=== PATIENT | female | born 1970 | race Caucasian/White ===

== ENCOUNTER 2016-12-05 05:52 | Inpatient (IN) ==
[2016-12-05] MEDS ORDERED: CeFAZolin Pre 2,000 MG/100 ML 2,000 MG/100 ML BAG IVPB ONE (06:18)
[2016-12-05] MEDS ORDERED: Lidocaine -MPF 4% 5 ML AMPUL ONE (06:51)
[2016-12-05] MEDS ORDERED: *HR* Midazolam HCl 2 MG/2 ML VIAL ONE (06:56)
[2016-12-05] MEDS ORDERED: Lidocaine -MPF 2% 2 ML VIAL ONE (06:57)
[2016-12-05] MEDS ORDERED: Ondansetron 4 MG/2 ML VIAL ONE (06:57)
[2016-12-05] MEDS ORDERED: Neostigmine Methylsulfate 3 MG/3 ML SYRINGE ONE (06:57)
[2016-12-05] MEDS ORDERED: Dexamethasone 4 MG/ML VIAL ONE (06:57)
[2016-12-05] MEDS ORDERED: *HR* Propofol 200 MG/20 ML VIAL IVP ONE (06:57)
[2016-12-05] MEDS ORDERED: *HR* FentaNYL (PF) 100 MCG/2 ML VIAL ONE ×3 (06:57→09:14)
[2016-12-05] MEDS ORDERED: *HR* Rocuronium Bromide 50 MG/5 ML VIAL ONE (06:57)
[2016-12-05] MEDS: Ringers Solution, Lactated 1,000 ML IVC SCH ×2 (07:04→09:32)
[2016-12-05] MEDS ORDERED: *HR* Belladonna Alkaloids/Opium 30 MG RECTAL SUPPOSITORY RC ONE (08:00)
--- NOTE | 2016-12-05 08:00 | Anesthesia Evaluation PreOp ---
Date of Encounter: 12/05/16 Time of Encounter: 07:58 - Past History Planned Operation: TAHBSO Cardiac History: Denies any Significant Hx Pulmonary History: Denies Any Significant HX FLIGHT ENGINEER History: Denies Any Significant HX Other Medical History: Denies Any Significant HX Anesthesia History: No Prior Anesthetic Complications, Past Anesthesia (c/s, l knee x 3, d&c) Alcohol Use: none Drug use: none Medications and Allergies No Known Home Drugs 12/05/16 [History] Allergies morphine Adverse Reaction (Verified 12/05/16 07:28) Hives - Meds/Allergy Pre-op Review Medications Reviewed: Yes Allergies Reviewed: Yes Beta Blockers on Current Med List: No Anesthesia Results - Labs Laboratory Tests 11/28/16 11/28/16 10:26 10:26 Hgb 15.6 H Hct 45.1 H Plt Count 285 Sodium 137 Potassium 4.2 Creatinine 0.74 Anesthesia Exam O2 Sat Height 1.52 m Height 1.52 m Height 1.52 m Weight 87.543 kg Weight 87.543 kg Weight 87.543 kg O2 Sat by Pulse Oximetry 97 O2 Sat by Pulse Oximetry 97 Vital Signs Temp Pulse Resp BP Pulse Ox 98.2 F 96 18 112/72 97 12/05/16 06:17 12/05/16 06:17 12/05/16 06:17 12/05/16 06:17 12/05/16 06:17 Height: 1.52 Weight: 87 NPO (# of Hours): >8 - HEENT Pupil (Motor): Pupils equal, EOMI Mallampati: II Teeth: Normal Oral Opening: Greater than 3 (good underbite) - FLIGHT ENGINEER LOC: Oriented FLIGHT ENGINEER Motor: Normal RUE, Normal LUE, Normal RLE, Normal LLE, Normal Face FLIGHT ENGINEER Sensory: Normal: RUE, LUE, RLE, LLE, Face - Cardiac Rhythm: Regular Murmur: None - Pulmonary Breath Sounds: bilateral Clear Respiratory Effort: Symmetrical Anesthesia Assess/Plan ASA Score: 1 Modified Mae Scale for Level of Consciousness: Cooperative, oriented, and tranquil Anesthetic Plan: General, Regional Monitoring Plan: Standard Monitors Recovery Plan: PACU
[2016-12-05] MEDS ORDERED: Bupivacaine/EPI 1:200k 0.25%PF 10 ML VIAL INFILT ONE (08:01)
--- NOTE | 2016-12-05 08:04 | History & Physical Report ---
Date of Encounter: 12/05/16 Time of Encounter: 08:04 24 Hour HP Update - Instructions Instructions: If the History and Physical is less than 30 days old and was completed prior to A.M. admission and or procedure and has NOT been updated on calendar day of procedure please complete this update prior to performing procedure. - Update Patient reports changes in Medical Condition: No Changes in assessment/condition: No Changes in Medication: No Preop tests/diagnostics Reviewed: Yes Surgery Remains Indicated: Yes Consent for Planned Operative Procedure(s) Verified: Yes - Pre-Operative Checklist Preoperative Checklist Indicated: Yes Prophylactic Antibiotic Ordered: Yes Home Medications Include Beta Savannah: No Beta Savannah Taken Today (Day of Surgery): No Beta [place] Taken Yesterday (Day Prior to Surgery): No Is VTE Prophylaxis Indicated?: Yes - Attending Attestation meryl tam md facog
[2016-12-05] MEDS ORDERED: Bupivacaine/Clonidine Syringe 1 EACH SYRINGE ONE (08:08)
--- NOTE | 2016-12-05 08:59 | Anesthesia Procedures ---
Date of Encounter: 12/05/16 Time of Encounter: 08:57 Procedures: Anesthesia - Nerve Block Procedure Date: 12/05/16 Time: 08:58 Allergies/Adv Reactions: morphine Pre-op Diagnosis: menorrhagia Surgical Procedure: TAHBSO Checklist: Correct Patient Identifier, Correct procedure, History checked Blood Thinner: No Monitor Applied: EKG, BP, Pulse Oximetry Supplemental Oxygen via Nasal Cannula (L/min): 2 Indication: Post Op Analgesia (request per dr harden) Pre-op Neuro Deficits: No Block Type: Other (bilat QL1 ) Catheter placed: No Sterile Technique: Yes Ultrasound used: Yes Anatomy identified: Yes Visual spread of Local: Yes Neuro Stimulation: No Blood on Needle Aspiration: No Smooth Injection of Local: Yes Pain with Injection of Local: No Prep: Chlorhexadine Needle: 21 x 100 mm Stimuplex Local: 0.25% Bupivicaine w/Clonidine 20 mcg/cc Volume (cc): 40 Number of Attempts: 1 Complications: None/effective block (block performed post indn) Vitals: see or note
[2016-12-05] MEDS ORDERED: Lacri-Lube 3.5 GM TUBE ONE (09:10)
[2016-12-05] MEDS ORDERED: *HR* HYDROmorphone (PF) 1 MG/ML SYRINGE IVP PRN (09:13)
[2016-12-05] MEDS ORDERED: Ketorolac 30 MG/ML VIAL ONE (10:44)
--- NOTE | 2016-12-05 11:24 | OB/GYN Procedure Note ---
Hysterectomy - Diagnosis Date of procedure: 12/05/16 Hysterectomy pre-op: abnormal uterine bleeding, symptomatic leiomyomata Post-op diagnosis: same - Procedure Hysterectomy procedure: total abdominal hysterectomy, bilateral salpingectomy Surgeon: Rodolfo Neves Ski Lift Attendant: Laura Mosqueda Anesthesia provider: Krystian Ramos Anesthesia Type: General Estimated blood loss (cc): 200 Complications: none Fluids: crystalloid Urine output (cc): 100 Specimens: uterus, cervix, right fallopian tube, left fallopian tube Findings: The fallopian tubes and ovaries appeared to be normal bilaterally. Uterus was enlarged to 12 weeks' size with multiple serosal and intramural leiomyomata. The bladder was pulled up skilled nursing to the anterior uterine surface. Disposition: PACU Narrative: Patient was taken to the operating room. After satisfactory anesthesia was achieved, patient placed in supine position, Howell catheter inserted, and prepped and draped in usual manner. After appropriate timeout, the abdomen was entered through standard Maylard incision. The Jarrell retractor was placed. The bowel was packed superiorly with an operative field. Uterus grasped on either side with Nancy clamps . The fallopian tubes were coagulated and cut on both sides. The round ligaments were coagulated on both sides and cut. Meso- ovarian ligaments were was coagulated and cut. The bladder that was stuck to the anterior surface of the uterus was dissected with sharp and blunt dissection. Uterine arteries were coagulated and both sides and cut. Once the bladder was free and dissected from the lower uterine segment, the cardinal ligament pedicles were coagulated on both sides and cut. Uterosacral ligaments were clamped, cut , and suture ligated with 0 Monocryl. The vagina was entered posteriorly. Cervix uterus , and attached adnexa were resected and sent to pathology for analysis. The vaginal cuff was closed with 0 Monocryl incorporating the uterosacral ligament pedicles. After assurance of hemostasis , the peritoneum was reapproximated over the vaginal cuff. FloSeal was placed on the overall bladder dissected area. After assurance of hemostasis , the retractor and packs were removed. The abdomen was closed in standard fashion using 0 Vicryl on the fascia and 3-0 Monocryl on the skin. Sterile dressing was applied. Patient did well and was taken to recovery room in satisfactory condition. Counts were correct.
[2016-12-05] MEDS ORDERED: Acetaminophen IV 1,000 MG/100 ML INFUS..BTL ONE (11:34)
--- NOTE | 2016-12-05 11:55 | Anesthesia Evaluation Post Op ---
Date of Encounter: 12/05/16 Time of Encounter: 11:55 - Lungs Lungs: Clear Ascult./Percussion - Airway Airway: Non-obstructed - Cardiovascular Regular Rate - Mental Status Mental Status: Alert & Oriented, Answers Appropriately - Pain Pain Scale: 4 - Nausea Vomiting Nausea Vomiting: Not Present - Hydration Hydration: Tolerates oral liquids - Discharge PostOp Status: Discharge Patient to home
[2016-12-05] MEDS ORDERED: Naloxone 0.4 MG/ML INJ IVP PRN (12:31)
[2016-12-05] MEDS ORDERED: *HR* HYDROcodone/Acet 5/325 mg TABLET PO PRN (12:31)
[2016-12-05] MEDS ORDERED: Ondansetron 4 MG/2 ML VIAL IVP PRN (12:31)
[2016-12-05] MEDS ORDERED: Sennosides 8.6 MG TABLET PO PRN (12:31)
[2016-12-05] MEDS: *HR* HYDROmorphone (PF) 1 MG/ML SYRINGE IVP PRN ×3 (13:17→22:51)
[2016-12-05] MEDS ORDERED: Ringers Solution, Lactated 1,000 ML ONE ×2 (14:44→22:52)
[2016-12-06] MEDS: *HR* OxyCODONE/APAP 5/325 TABLET PO PRN ×5 (04:31→23:18)
[2016-12-06 04:52] LABS: Basophils % 0.2 %; Hematocrit 37.2 % (35.3-44.9); Hemoglobin 12.6 g/dL (11.5-15.4); Immature Granulocytes % 0.5 % (0-4); Lymphocytes # 1.4 K/mcL (0.6-4.6); Lymphocytes % 12.1 %; Mean Corpuscular HGB Conc 33.9 g/dL (31.6-35.5); Mean Corpuscular Hemoglobin 30.1 pg (28.0-33.3); Mean Corpuscular Volume 88.8 fL (83.0-100.0); Mean Platelet Volume 10.3 fL (9.4-12.4); Monocytes # 0.9 K/mcL (0.0-1.3); Monocytes % 8.1 %; Neutrophils # 9.2 K/mcL (1.6-8.9); Platelet Count 223 K/mcL (140-400); Red Blood Count 4.19 M/mcL (3.82-4.97); Red Cell Distribution Width 12.5 % (11.5-14.5); Segmented Neutrophils % 79.1 %
[2016-12-06 05:02] LABS: eGFR For African Americans > 60 (> 60); eGFR For Non-African Americans > 60 (> 60)
--- NOTE | 2016-12-06 12:35 | OB/GYN Progress Note ---
Date of Encounter: 12/06/16 Time of Encounter: 07:05 - Assessment and Plan (1) Leiomyoma of body of uterus Current Visit: Yes Status: Resolved Qualifiers: Uterine leiomyoma location: intramural Qualified Code(s): D25.1 - Intramural leiomyoma of uterus (2) Adenomyosis Current Visit: Yes Status: Resolved (3) Enlarged uterus Current Visit: Yes Status: Resolved Subjective - Subjective Interval history: Doing well, ambulating. C/O lower abdominal gas pressure. Tolerating liquids, no flatus. Objective - Vital Signs Latest vital signs: Vital Signs Temp Pulse Resp BP Pulse Ox 12/06/16 11:50 98.2 F 93 16 110/73 12/06/16 07:30 98.3 F 92 16 115/79 98 12/06/16 05:15 98.3 F 98 16 112/76 96 12/06/16 00:25 16 12/06/16 00:10 98.7 F 92 16 108/74 95 12/05/16 20:19 98.3 F 91 16 114/79 96 12/05/16 14:24 16 12/05/16 14:15 98.1 F 100 16 110/71 97 12/05/16 13:15 98 F 98 16 113/78 94 L 12/05/16 12:45 97.9 F 95 16 115/71 95 12/05/16 12:41 97.8 F 101 16 111/61 96 Intake and Output 12/05/16 12/06/16 12/06/16 23:59 07:59 15:59 Intake Total 200 / 200 720 / 720 Output Total 200 / 200 450 / 450 700 / 700 Balance -200 / -200 -250 / -250 20 / 20 Intake: Oral 200 / 200 720 / 720 Output: Urine 700 / 700 Catheter 200 / 200 450 / 450 Other: Weight 87.5 kg Patient Weight 12/06/16 23:59 Weight 87.5 kg - I&O's I&O's: Intake & Output 12/03/16 12/04/16 12/05/16 12/06/16 23:59 23:59 23:59 23:59 Intake Total 1100 / 1100 920 / 920 Output Total 400 / 400 1150 / 1150 Balance 700 / 700 -230 / -230 Weight 84.5 kg 87.5 kg - Exam Lungs: bilateral: normal Chest: Normal S1, Normal S2 Extremities: Present: normal. Absent: tenderness Abdomen: Present: normal appearance, soft Incision OB: Present: normal, dry, intact, dressed - Labs Labs: Abnormal lab results WBC 11.6 K/mcL (4.3-11.1) H 12/06/16 04:15 Neutrophils # 9.2 K/mcL (1.6-8.9) H 12/06/16 04:15 Consult Discharge Plan - Plan Referrals: NO,PCP [Primary Care Provider] -
[2016-12-06] MEDS: Simethicone 80 MG TAB.CHEW PO PRN (20:54)
[2016-12-07] MEDS: *HR* OxyCODONE/APAP 5/325 TABLET PO PRN ×2 (03:48→09:05)
--- NOTE | 2016-12-07 08:58 | OB/GYN Progress Note ---
Date of Encounter: 12/07/16 Time of Encounter: 08:52 - Assessment and Plan (1) Leiomyoma of body of uterus Current Visit: Yes Status: Resolved Qualifiers: Uterine leiomyoma location: intramural Qualified Code(s): D25.1 - Intramural leiomyoma of uterus (2) Adenomyosis Current Visit: Yes Status: Resolved (3) Enlarged uterus Current Visit: Yes Status: Resolved Subjective - Subjective Patient reports: appetite normal, voiding normally, pain well controlled, ambulating normally, other (positive flatus) Objective - Vital Signs Latest vital signs: Vital Signs Temp Pulse Pulse Resp BP Pulse Ox 12/07/16 03:58 100 18 12/07/16 03:54 98.1 F 99 16 118/83 99 12/06/16 20:56 88 12/06/16 20:50 98.8 F 98 16 121/81 95 12/06/16 16:00 98.2 F 81 16 118/79 12/06/16 11:50 98.2 F 93 16 110/73 Intake and Output 12/06/16 12/07/16 12/07/16 23:59 07:59 15:59 Intake Total 350 / 350 Output Total 400 / 400 Balance -50 / -50 Intake: Oral 350 / 350 Output: Urine 400 / 400 - I&O's I&O's: Intake & Output 12/04/16 12/05/16 12/06/16 12/07/16 23:59 23:59 23:59 23:59 Intake Total 1100 / 1100 1270 / 1270 Output Total 400 / 400 2049 Balance 700 / 700 -780 / -780 Weight 84.5 kg 87.5 kg - Exam Lungs: bilateral: normal Chest: Normal S1, Normal S2 Extremities: Present: normal. Absent: tenderness Abdomen: Present: normal appearance, soft Incision OB: Present: normal, dry, intact, dressed - Labs Labs: Abnormal lab results WBC 11.6 K/mcL (4.3-11.1) H 12/06/16 04:15 Neutrophils # 9.2 K/mcL (1.6-8.9) H 12/06/16 04:15 Consult Discharge Plan - Plan Instructions: Abdominal Hysterectomy (DC) Additional Instructions: No driving for two weeks, no lifting more than a gallon of milk for 4 weeks, no intercourse for 4 weeks Referrals: Edwardo Dejesus DO [Partnered Physician] - Prescriptions: OxyCODONE/APAP 5/325 [Percocet 5/325 MG] 1 each PO Q6HR PRN #30 tablet PRN Reason: Severe Pain (7-10) Docusate [Colace] 100 mg PO BID #20 capsule
[2016-12-07] MEDS: Simethicone 80 MG TAB.CHEW PO PRN (09:05)
[2016-12-07 09:34] VITALS: BP 120/85
== END 2016-12-07 10:10 | disposition home or self-care (01) | DRG 743 ==
LOC: SAMDAY 05:52 → 1NENUOBS 12:15